=== PATIENT | male | born 1995 | race Caucasian/White ===

== ENCOUNTER 2019-07-07 02:21 | Emergency (ER) | payer OTHER ==
[~2019-07-07] VITALS: Ht 188 cm; Wt 84.5 kg
[2019-07-07 02:21] VITALS: BP 137/75
[2019-07-07] MEDS ORDERED: prednisoLONE ACET 1% OPHTH SUSP 5ML OU ONE (03:00)
[2019-07-07] MEDS ORDERED: TETRACAINE 0.5% OPHTH SOLN 4ML OU ONE (03:00)
== END 2019-07-07 03:59 | disposition home or self-care (01) ==
LOC: M ED 02:21
DX: H10.213 Acute toxic conjunctivitis, bilateral (principal)